=== PATIENT | female | born 1975 | race African-American/Black ===

== ENCOUNTER 2018-02-02 17:03 | Inpatient (IN) | payer BC ==
[2018-02-02] MEDS ORDERED: Ondansetron HCl/PF 4 MG/2 ML Vial SLOW IVP PRN (18:12)
[2018-02-02] MEDS ORDERED: Promethazine HCl 25 MG/ML VIAL SLOW IVP PRN (18:12)
[2018-02-02] MEDS ORDERED: Sodium Chloride 0.9% 1,000 ML IV SCH (18:15)
[2018-02-02 18:34] LABS: #Basophils 0.2 thou/uL (0.0-0.2); #Eosinphils 0.1 thou/uL (0.0-0.7); #Lymphocytes 3.9 thou/uL (1.20-3.40); #Monocytes 1.1 thou/uL (0.11-0.59); #Neutrophils 5.5 thou/uL (1.40-6.50); %Basophils 1.5 % (0.0-1.0); %Eosinophils 0.8 % (0.0-10.0); %Lymphocytes 36.3 % (21.0-51.0); %Monocytes 10.3 % (0.0-10.0); %Neutrophils 51.1 % (42.0-75.0); Hemoglobin 16.4 g/dL (12.0-16.0); Mean Corpuscular HGB CONC 31.2 g/dL (32.0-36.0); Mean Corpuscular Hemoglobin 29.6 pg (27.0-31.0); Mean Corpuscular Volume 94.8 fL (78.0-98.0); Platelet Count 397 thou/uL (130-400); RBC Distribution Width 11.7 % (11.5-14.5); Red Blood Cell (RBC) Count 5.54 mill/uL (4.20-5.40); White Blood Cell (WBC) Count 10.7 thou/uL (4.8-10.8)
[2018-02-02] MEDS: Sodium Chloride 0.9% 1,000 ML IV SCH (18:51)
[2018-02-02] MEDS: Morphine 2 MG/ML SYRINGE SLOW IVP PRN (18:52)
[2018-02-02 20:21] LABS: ALT (SGPT) 17 U/L (8-55); AST (SGOT) 16 U/L (5-34); Alkaline Phosphatase 77 U/L (40-150); Anion Gap 16 mmol/L (10-20); BUN (Urea Nitrogen) 21 mg/dL (7.0-18.7); Bilirubin, Direct 0.6 mg/dL (0.1-0.3); Bilirubin, Total 1.9 mg/dL (0.2-1.2); Calc. Creatinine Clearance 0 mL/min (70-130); Calcium 9.5 mg/dL (7.8-10.44); Carbon Dioxide 23 mmol/L (22-29); Chloride 100 mmol/L (98-107); Estimated GFR-MDRD Greater than 90; Globulin 4.5 g/dL (2.4-3.5); Glucose 86 mg/dL (70-105); Potassium 3.8 mmol/L (3.5-5.1); Protein, Total 8.5 g/dL (6.0-8.3); Sodium 135 mmol/L (136-145)
[2018-02-02] MEDS ORDERED: Ketorolac Tromethamine 30 MG/ML VIAL IVP PRN (21:17)
[2018-02-02] MEDS: cefOXitin 2 GM in Sodium Chloride 0.9% 100 ML IVPB SCH (21:26)
[2018-02-02] MEDS ORDERED: hydrALAZINE 20 MG/ML VIAL SLOW IVP SCH (21:30)
[2018-02-03] MEDS: Morphine 2 MG/ML SYRINGE SLOW IVP PRN ×2 (00:24→08:00)
[2018-02-03 01:18] VITALS: BMI 37.9
[2018-02-03] MEDS: Sodium Chloride 0.9% 1,000 ML IV SCH ×5 (03:38→20:16)
[2018-02-03] MEDS: cefOXitin 2 GM in Sodium Chloride 0.9% 100 ML IVPB SCH ×3 (06:35→22:34)
[2018-02-03] MEDS ORDERED: Bupivacaine/Epinephrine 0.25% 30 ML VIAL ONE (09:58)
[2018-02-03] MEDS ORDERED: Iothalamate Meglumine 60% 50 ML VIAL FS ONE (10:02)
[2018-02-03] MEDS ORDERED: Midazolam HCl 2 mg/2 ml Vial ONE ×2 (10:05→10:06)
[2018-02-03] MEDS ORDERED: Fentanyl 100 MCG/2 ML VIAL ONE (10:06)
[2018-02-03] MEDS ORDERED: HYDROmorphone 2 MG/ML VIAL ONE (10:06)
--- NOTE | 2018-02-03 11:29 | RAD ---
OPERATIVE CHOLANGIOGRAM TWO VIEWS: History: Intraoperative films. FINDINGS: These show filling of a nondilated common bile duct with emptying into the duodenum. No filling defec ts. IMPRESSION: Unremarkable operative cholangiogram. POS: LUIS ANGEL
[2018-02-03] MEDS ORDERED: Morphine 4 MG/ML VIAL SLOW IVP PRN (11:33)
[2018-02-03] MEDS ORDERED: Mag-Al 1200 mg/1200 mg/30 ML UDCUP PO PRN (11:33)
[2018-02-03] MEDS ORDERED: Dextrose 50% Abboject 50 ML SYRINGE SLOW IVP PRN (11:33)
[2018-02-03] MEDS ORDERED: Dextrose 5% in Water 1,000 ML IV PRN (11:33)
[2018-02-03] MEDS ORDERED: Promethazine HCl 25 MG/ML VIAL IM PRN ×2 (11:33→11:39)
[2018-02-03] MEDS ORDERED: hydrALAZINE 20 MG/ML VIAL SLOW IVP PRN (11:33)
[2018-02-03] MEDS ORDERED: Ondansetron HCl/PF 4 MG/2 ML Vial IVP PRN ×2 (11:33→11:39)
[2018-02-03] MEDS ORDERED: HYDROcodone/Acetaminophen 10/325 mg Tablet PO PRN (11:33)
[2018-02-03] MEDS ORDERED: Calcium Carbonate 500 MG ChewTAB PO PRN (11:33)
[2018-02-03] MEDS ORDERED: Promethazine HCl 25 MG/ML VIAL SLOW IVP PRN (11:39)
[2018-02-03] MEDS ORDERED: Meperidine HCl/PF 25 MG/ML VIAL SLOW IVP PRN (11:39)
[2018-02-03] MEDS ORDERED: Morphine 4 MG/ML VIAL ONE ×3 (11:55→12:43)
[2018-02-03] MEDS ORDERED: Labetalol HCl 100 MG/20 ML VIAL ONE (12:22)
[2018-02-03] MEDS ORDERED: Labetalol HCl 100 MG/20 ML VIAL SLOW IVP PRN (12:44)
--- NOTE | 2018-02-03 12:49 | OP ---
PREOPERATIVE DIAGNOSIS: Acute cholecystitis. SURGEON: Felix Tony M.D. PROCEDURE PERFORMED: Laparoscopic cholecystectomy with intraoperative cholangiogram. INDICATIONS: This is a 42-year-old female who presented with severe right upper quadrant abdominal p ain radiating to the back associated with nausea. Ultrasound showed a filling defect consistent with polyp versus adherent gallstone. She also had an elevated bilirubin at 1.9. FINDINGS: Thickening of the gallbladder wall. The intraoperative cholangiogram showed no filling de fects, fairly narrow common bile duct and free flow into the duodenum. DESCRIPTION OF PROCEDURE: After informed consent was obtained, the patient was taken to the operatin g room and given general endotracheal anesthesia. She was placed in the supine position. The abdome n was prepped and draped in usual fashion. Local anesthesia infiltrated subcutaneously and deep. A subumbilical incision was performed. The subcu divided sharply. The fascia grasped and two stay sut ures of 0 Vicryl placed to either side of midline. Midline incised. Digital palpation revealed no l ocal adhesions. A blunt 10/12 mm trocar inserted. Pneumoperitoneum was created to a pressure of 15 mmHg. Zero degree laparoscope inserted under direct vision, three 5 mm ports placed subcostally. Th e gallbladder was grasped and advanced superiorly. The peritoneum was dissected distally to expose c ystic duct artery and critical view. The duct was ligated with Hemoclips just at the base of the gal lbladder. An incision was made in the cystic duct. The Arrow cholangiocatheter inserted. Intraoper ative cholangiogram was performed utilizing fluoroscopy. It showed a fairly narrow common bile duct, normal intrahepatic ducts, no filling defects, free flow into the duodenum. The catheter was remove d. The cystic duct triply ligated and divided. The artery was short and it came right off the right hepatic. I was able to put three clips on it and divided and the gallbladder was removed from its f josue utilizing electrocautery, was placed in an Endosac and removed from the abdomen through the umbi lical port. Hemostasis was assured. Trocars and retractors removed. The fascia closed with interru pted 0 Vicryl suture. The skin closed with interrupted 4-0 Rapide. Dermabond applied. The patient tolerated the procedure well and was transferred to recovery in good condition. Sponge and needle co unt verified correct x2.
[2018-02-03] MEDS ORDERED: Lidocaine 1% PF 5 ML VIAL ONE (13:25)
[2018-02-03] MEDS ORDERED: Ketorolac Tromethamine 30 MG/ML VIAL ONE (13:25)
[2018-02-03] MEDS ORDERED: Ondansetron HCl/PF 4 MG/2 ML Vial ONE (13:25)
[2018-02-03] MEDS ORDERED: Dexamethasone 20 MG/5 ML VIAL ONE (13:25)
[2018-02-03] MEDS ORDERED: Glycopyrrolate 0.2 MG/ML 5 ML SYRINGE ONE (13:25)
[2018-02-03] MEDS ORDERED: Metoprolol Tartrate 5 MG/5 ML VIAL ONE (13:25)
[2018-02-03] MEDS ORDERED: PROPOFOL 200 MG/20 ML VIAL ONE (13:25)
[2018-02-03] MEDS: HYDROcodone/Acetaminophen 10/325 mg Tablet PO PRN (18:45)
[2018-02-03] MEDS: Famotidine 20 MG TAB PO SCH (20:15)
[2018-02-03] MEDS: Famotidine/PF 20 mg/2ml Vial SLOW IVP SCH (20:29)
[2018-02-04] MEDS: Sodium Chloride 0.9% 1,000 ML IV SCH ×3 (03:36→11:22)
[2018-02-04] MEDS: HYDROcodone/Acetaminophen 10/325 mg Tablet PO PRN ×2 (03:46→13:33)
[2018-02-04 05:16] LABS: ALT (SGPT) 33 U/L (8-55); AST (SGOT) 39 U/L (5-34); Albumin 3.1 g/dL (3.5-5.0); Alkaline Phosphatase 59 U/L (40-150); Anion Gap 10 mmol/L (10-20); BUN (Urea Nitrogen) 11 mg/dL (7.0-18.7); Bilirubin, Total 1.4 mg/dL (0.2-1.2); Calc. Creatinine Clearance 154 mL/min (70-130); Calcium 8.3 mg/dL (7.8-10.44); Carbon Dioxide 24 mmol/L (22-29); Chloride 105 mmol/L (98-107); Estimated GFR-MDRD Greater than 90; Globulin 3.3 g/dL (2.4-3.5); Glucose 97 mg/dL (70-105); Lipase 21 U/L (8-78); Potassium 3.7 mmol/L (3.5-5.1); Protein, Total 6.4 g/dL (6.0-8.3); Sodium 135 mmol/L (136-145)
[2018-02-04] MEDS: cefOXitin 2 GM in Sodium Chloride 0.9% 100 ML IVPB SCH (05:43)
[2018-02-04 06:11] LABS: #Lymphocytes 2.5 thou/uL (1.20-3.40); #Monocytes 1.3 thou/uL (0.11-0.59); #Neutrophils 10.7 thou/uL (1.40-6.50); %Eosinophils 0.1 % (0.0-10.0); %Lymphocytes 17.4 % (21.0-51.0); %Monocytes 8.7 % (0.0-10.0); %Neutrophils 73.7 % (42.0-75.0); Hemoglobin 12.8 g/dL (12.0-16.0); Mean Corpuscular Hemoglobin 30.7 pg (27.0-31.0); Mean Corpuscular Volume 95.9 fL (78.0-98.0); Platelet Count 303 thou/uL (130-400); RBC Distribution Width 11.4 % (11.5-14.5); Red Blood Cell (RBC) Count 4.17 mill/uL (4.20-5.40); White Blood Cell (WBC) Count 14.6 thou/uL (4.8-10.8)
[2018-02-04] MEDS: Famotidine 20 MG TAB PO SCH (08:55)
[2018-02-04] MEDS ORDERED: Enoxaparin Sodium 40 MG/0.4 ML SYRINGE SC SCH (09:00)
[2018-02-04] MEDS: Famotidine/PF 20 mg/2ml Vial SLOW IVP SCH (09:42)
[2018-02-04 10:08] VITALS: TEMP 98.1
[2018-02-04 11:41] VITALS: BP 120/77
--- NOTE | 2018-02-04 13:31 | DIS ---
DATE OF ADMISSION: 02/02/2018 DATE OF DISCHARGE: 02/04/2018 DISCHARGE DIAGNOSIS: Acute cholecystitis. PROCEDURES DURING ADMISSION: Laparoscopic cholecystectomy with intraoperative cholangiogram. HOSPITAL COURSE: The patient was admitted, given IV fluids, IV antibiotics, taken to the operating r oom where she underwent a laparoscopic cholecystectomy. She was found to have a thickened gallbladde r wall, normal cholangiogram. Postoperatively, she has done well. She feels much better. She is to lerating a regular diet. She is afebrile. She is discharged home on hydrocodone and Zofran. She wi ll follow up with me in 2 weeks.
== END 2018-02-04 13:50 | disposition home or self-care (01) | DRG 419 ==
LOC: SJJU 17:35
PROVIDERS: ADMIT Surgery; ATTEND Surgery
PROC: 0FT44ZZ Resection of Gallbladder, Percutaneous Endoscopic Approach (ICD-10-PCS; principal; 2018-02-02)
PROC: BF101ZZ Fluoroscopy of Bile Ducts using Low Osmolar Contrast (ICD-10-PCS; 2018-02-02)
DX: K81.2 Acute cholecystitis with chronic cholecystitis (principal)
CPT/HCPCS: 36415; 47532; 80053; 80076; 83690; 85025; 88304; J0131; J0694; J1170; J1885; J2250; J2270; J2405; J2550; J3010; J7050; Q9961; S0028

== ENCOUNTER 2018-02-12 16:54 | Emergency (ER) | payer BC ==
[~2018-02-12 16:54] MED LIST: ISOVUE-370 76%-LOCM 1 ML ONE
[2018-02-12 17:33] LABS: #Basophils 0.1 thou/uL (0.0-0.2); #Eosinphils 0.2 thou/uL (0.0-0.7); #Lymphocytes 2.7 thou/uL (1.20-3.40); #Monocytes 0.6 thou/uL (0.11-0.59); #Neutrophils 4.7 thou/uL (1.40-6.50); %Basophils 1.1 % (0.0-1.0); %Eosinophils 2.6 % (0.0-10.0); %Lymphocytes 32.3 % (21.0-51.0); %Monocytes 7.2 % (0.0-10.0); %Neutrophils 56.8 % (42.0-75.0); Mean Corpuscular HGB CONC 32.1 g/dL (32.0-36.0); Mean Corpuscular Hemoglobin 30.5 pg (27.0-31.0); Mean Platelet Volume 8.2 fL (7.4-10.4); Platelet Count 463 thou/uL (130-400); RBC Distribution Width 11.8 % (11.5-14.5); Red Blood Cell (RBC) Count 4.91 mill/uL (4.20-5.40); White Blood Cell (WBC) Count 8.3 thou/uL (4.8-10.8)
[2018-02-12 17:54] LABS: ALT (SGPT) 26 U/L (8-55); AST (SGOT) 19 U/L (5-34); Albumin 4.2 g/dL (3.5-5.0); Alkaline Phosphatase 79 U/L (40-150); Anion Gap 14 mmol/L (10-20); BUN (Urea Nitrogen) 8 mg/dL (7.0-18.7); Bilirubin, Total 1.4 mg/dL (0.2-1.2); Calc. Creatinine Clearance 0 mL/min (70-130); Calcium 9.9 mg/dL (7.8-10.44); Carbon Dioxide 27 mmol/L (22-29); Chloride 102 mmol/L (98-107); Estimated GFR-MDRD 83; Globulin 4.3 g/dL (2.4-3.5); Glucose 110 mg/dL (70-105); Lipase 20 U/L (8-78); Protein, Total 8.5 g/dL (6.0-8.3); Sodium 139 mmol/L (136-145)
[2018-02-12] MEDS ORDERED: Morphine 4 MG/ML VIAL ONE (18:10)
[2018-02-12] MEDS ORDERED: Ondansetron HCl/PF 4 MG/2 ML Vial ONE ×2 (18:10→20:57)
[2018-02-12 18:36] LABS: Bilirubin Negative (Negative); Blood, Urine Negative (Negative); Clarity CLEAR (Clear); Glucose, Urine (Dipstick) Negative (Negative); Leukocyte Negative (Negative); Nitrite Negative (Negative); Protein, Urine (Dipstick) 30 mg/dL (Neg-Trace); Specific Gravity, Urine 1.021 (1.002-1.036); pH, Urine 8.5 (5.0-9.0)
[2018-02-12 18:37] LABS: Pregnancy Test - Urine (BHCG) Negative (Negative); Pregu Control Background? CLEAR/WHITE (CLR/WHITE); Pregu Control Bar Appear? YES (CONTROL BAR); Specific Gravity 1.021 (1.002-1.036)
[2018-02-12 18:39] LABS: Bacteria/HPF None Seen HPF (None Seen); Hyaline Casts/LPF 0-3 HYALINE CAST LPF (0-3 Hyaline); RBC/HPF 0-3 HPF (0-3); Squamous Epithelial None Seen HPF (0-3); WBC/HPF None Seen HPF (0-3)
--- NOTE | 2018-02-12 20:09 | CT ---
CT ABDOMEN AND PELVIS 02/12/18 COMPARISON: None. HISTORY: Diffuse abdominal pain, recent cholecystectomy. TECHNIQUE: Serial axial CT imaging at 5 mm intervals from lung bases through pubic symphysis with IV contrast. C oronal reformatted imaging obtained. FINDINGS: The visualized lung bases are unremarkable. No free intraperitoneal air is appreciated. Cholecystectomy clips are present. There is minimal fluid density in the gallbladder fossa which is c rescentic in nature and measures 2.1 x 1.3 x 2.2 cm. No discrete focal liver lesion is identified. Th e spleen, pancreas, adrenal glands, and kidneys are grossly unremarkable. There is a small fat contai scott umbilical hernia. There is trace free fluid in the pelvic cul-de-sac. There is diverticulosis of the descending colon a nd the sigmoid colon with no evidence or diverticulitis. No evidence or bowel obstruction or appendic itis. The vascular structures of abdomen/pelvis appear patent. There is no lymphadenopathy noted in the abd omen or pelvis. Nonspecific nodular soft tissue density is seen within the subcutaneous fat just anterior to the doron toneal cavity within the lower abdomen best seen on axial image 60. This lobulated soft tissue densit y demonstrates an ill-defined nature and measures in the 2.3 x 6.3 x 4.2 cm range. This may be associ ated with prior surgical scar. Clinical correlation is essential. Review of the osseous structures demonstrates multilevel lower lumbar spine facet hypertrophic change . There is no worrisome lytic or blastic bone lesions. There is evidence of prior fracture involving the right femoral neck. IMPRESSION: 1. Small volume fluid in the gallbladder fossa, significance uncertain. 2. Lobulated soft tissue density is seen within the subcutaneous fat just anterior to the perito kip cavity within the lower abdomen/upper pelvis as described above. 3. No evidence for free intraperitoneal air or bowel obstruction. POS: NICOLE
[2018-02-12] MEDS ORDERED: Fentanyl 100 MCG/2 ML VIAL ONE (20:57)
[2018-02-12] MEDS ORDERED: Metoclopramide HCl 10 MG/2 ML VIAL ONE (22:22)
[2018-02-12] MEDS ORDERED: HYDROcodone/Acetaminophen 7.5/325 mg Tablet ONE (22:23)
== END 2018-02-13 00:10 | disposition home or self-care (01) ==
LOC: ERS 16:54
DX: G89.18 Other acute postprocedural pain (principal); R10.9 Unspecified abdominal pain; R11.2 Nausea with vomiting, unspecified
CPT/HCPCS: 36415; 74177; 80053; 81003; 81015; 81025; 83605; 83690; 85025; 96361; 96365; 96375; 96376; J2270; J2405; J2765; J3010